=== PATIENT | male | born 1970 | race Caucasian/White ===

== ENCOUNTER 2017-02-11 21:19 | Emergency (ER) | payer SELFPAY ==
[2017-02-12 00:07] VITALS: BP 138/88
== END 2017-02-12 00:07 | disposition home or self-care (01) ==
LOC: ED 21:19
DX: S29.011A Strain of muscle and tendon of front wall of thorax, initial encounter (principal); X58.XXXA Exposure to other specified factors, initial encounter; Y93.89 Activity, other specified; Y99.8 Other external cause status; Y92.89 Other specified places as the place of occurrence of the external cause
CPT/HCPCS: Q0092